=== PATIENT | male | born 2005 | race Caucasian/White ===

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

== ENCOUNTER 2023-08-07 20:24 | Emergency (ER) | payer MEDICAID, SELFPAY ==
[2023-08-07 20:29] VITALS: BP 160/70; PULSE 74; RESP 14; TEMP 36.7; O2SAT 98
--- NOTE | 2023-08-07 20:39 | ED.GENADUL_ITS ---
Discharge Plan Disposition Patient Disposition: Home Condition: Stable Discharge Details Clinical Impression: Cellulitis of both feet Primary Care Provider: Unknown,Unknown ED Provider: Waqas Suggs Home Meds and New Rx's Prescriptions: New sulfamethoxazole-trimethoprim 800-160 mg tablet 1 tab PO BID 10 Days Qty: 20 0RF Continued fluticasone propionate [Flovent HFA] 120 PUFF HFA aerosol inhaler 1 puff Inhalation BID Qty: 1 1RF albuterol sulfate [Ventolin HFA] 60 PUFF HFA aerosol inhaler 2 puff Inhalation Q4H PRN PRNQty: 1 1RF Discharge Instructions Instructions: Sulfamethoxazole/Trimethoprim (By mouth), Mupirocin (On the skin), Cellulitis (ED) Additional Instructions: You were seen in the emergency department for your infected feet. I have sent a prescription for Bactrim to [facility] down the [place]. You need to follow-up with podiatry as your feet likely need specialty care. You need to take better care of your feet including wearing clean socks, you should be bandaging these wounds and using topical antibiotics that we have provided for you today. Pl ease return for any severe increase in redness, red streaking up the leg, fever, nausea, weakness. Referrals: [facility] [Provider Group] Discharge Data Discharge Date/Time-TO BE ENTERED AT DEPARTURE: 08/07/23 21:22 HPI General Date/Time Provider Initiated Documentation: 08/07/23 20:35 . HPI Narrative: 17 year-old male presents to ED today by POV/ambulating with a chief complaint of toe infections per Mom, patient denies acute problem with onset noted chronically after dropping something on his toes 3 years ago. Quality described as redness, mild lesions to toes, no radiation to fever, red streaking, purulent drainage, calf pain, leg swelling. Severity is described as mild. Palliating factors include nothing specific. Provoking factors include nothing specific. Patient not anticoagulated. Related Data Home Medications Medication Instructions Recorded Confirmed albuterol sulfate 90 mcg/actuation 2 puff inhalation Q4H PRN PRN ##1 01/04/16 08/07/23 aerosol inhaler (Ventolin HFA) fluticasone propionate 110 1 puff inhalation BID ##1 01/04/16 08/07/23 mcg/actuation HFA aerosol inhaler (Flovent HFA) sulfamethoxazole 800 1 tab PO BID cellulitis 10 days 08/07/23 mg-trimethoprim 160 mg tablet #20 tabs Previous Rx's Medication Instructions Recorded albuterol sulfate 90 mcg/actuation 2 puff inhalation Q4H PRN PRN ##1 01/04/16 aerosol inhaler (Ventolin HFA) fluticasone propionate 110 1 puff inhalation BID ##1 01/04/16 mcg/actuation HFA aerosol inhaler (Flovent HFA) sulfamethoxazole 800 1 tab PO BID cellulitis 10 days 08/07/23 mg-trimethoprim 160 mg tablet #20 tabs Allergies Allergy/AdvReac Type Severity Reaction Status Date / Time No Known Allergies Allergy Unverified 06/13/21 14:55 General Stated Complaint: Cellulitis LUIS: 3 Review of Systems All systems reviewed & are unremarkable except as noted in HPI and below Exam Narrative Exam Narrative: GENERAL APPEARANCE: Well-nourished, non-toxic, awake and alert, atraumatic, no acute distress. SKIN: Warm, pink, dry, diffuse erythema and paronychia without purulent drainage lucio-nailbeds to any toes bilaterally. Minor ulcerations/wounds, no lymphadenitis, no leg swelling. HEAD: Normocephalic, atraumatic, normal hair distribution for gender/age. EYES: Pupils PERRLA, EOMs intact without nystagmus, normal conjunctiva, no exudates on lids/lashes. ENT: Nares patent, no circumoral cyanosis, no facial swelling NECK: Supple, trachea midline, painless cervical ROM. LUNGS/CHEST: Non-labored respirations, normal A/P diameter, symmetrical expansion, no chest wall deformity HEART (CV/PV): No peripheral edema, no JVD. ABDOMEN: Soft, non-distended, no guarding. MSK: Normal ROM, no swelling/deformity to bilateral UEs or LEs, moving all extremities without weakness, no cyanosis, spine midline without tenderness, normal curvature. NEURO: Mental Status AAOx4 - alert to person, place, time, events No facial droop, no forehead involvement. Motor: No focal weakness - strength 5/5 in bilateral UEs and LEs, proximal and distal, symmetric. Sensory: sensation intact to light touch globally. Gait normal: patient ambulated without ataxia into ED room. PSYCH: euthymic, cooperative, pleasant, appropriate speech Course Vital Signs Vital signs: Vital Signs Temperature 36.7 C 08/07/23 20:29 Pulse 74 08/07/23 20:29 Respiratory Rate 14 08/07/23 20:29 Blood Pressure 160/70 H 08/07/23 20:29 Pulse Oximetry 98 08/07/23 20:29 Temperature 36.7 C 08/07/23 20:29 Temperature Source Oral 08/07/23 20:29 Pulse 74 08/07/23 20:29 Respiratory Rate 14 08/07/23 20:29 Respiratory Effort Normal, Non-Labored 08/07/23 20:34 Blood Pressure 160/70 H 08/07/23 20:29 Blood Pressure Position Sitting 08/07/23 20:29 Pulse Oximetry 98 08/07/23 20:29 Oxygen Delivery Method Room Air 08/07/23 20:29 Oxygen Flow Rate 0 08/07/23 20:29 Pain Level 0 08/07/23 20:29 Medical Decision Making This dictation utilizes [id number] dictation software and may contain une dited grammatical errors. 17 y/o M presents to ED today with a chief complaint of bilateral diffuse erythema/infection to toes, no purulent drainage, no fever, no lymphadenitis. Patient states his toes are always like this for years. Patients' medical history: negative. Family and social history: noncontributory. Pertinent exam findings / vital signs include SKIN: Warm, pink, dry, diffuse erythema and paronychia without purulent drainage lucio-nailbeds to any toes bilaterally. Minor ulcerations/wounds, no lymphadenitis, no leg swelling.. Differential / pathologies of concern include cellulitis/parnoychia, not sepsis, not vascular pathology. Diagnostic studies of: -none. Interventions of: -Outpatient Rx for Bactrim for paronychia, refer podiatry. ED Course/Assessment/Plan: 17-year-old male presents with bilateral erythematous toes, has minor ulcerations and redness without purulent drainage, likely significant cellulitis/paronychia ongoing for some time now. Patient takes poor care of his feet, I counseled him on better footcare as well as topical antibiotics with mupirocin provided an outpatient prescription for Bactrim, refer to podiatry. Counseled strict return criteria for fever, red streaking up the legs, unilateral leg swelling or focal nodular swelling to the calves. Findings not consistent with neurovascular compromise, sepsis. Disposition of cellulitis of both feet. Patient verbalized understanding of the plan and return to ED criteria and engaged in shared decision making. Medical Records Medical records reviewed: Yes I reviewed the patient's medical records. Quality:SDOH Health Related Social Needs: No Data to Display PFSH All Active Problems (Updated 08/07/23 @ 21:06 by CARLY Moore) Cellulitis of both feet (Acute) Social History Smoking/Tobacco Use Status: Never Smoking risk assessment performed?: Yes Alcohol Intake: never Drug use: Never Substance use type: does not use Do you feel safe at home: Yes Do you feel safe in your relationship?: Yes
[2023-08-07] MEDS: Mupirocin 2% Oint. 22 GM TUBE TP (21:16)
[2023-08-07] MEDS: Sulfameth/Trimeth DS, 2 TABS/BTL 1 TAB PO (21:16)
--- NOTE | 2023-08-08 17:01 | NUR.NOTE ---
Referral faxed to Podiatry for follow up to Cellulitis of both feet, to be seen as soon as possible.
== END 2023-08-07 21:22 | disposition home or self-care (01) ==
LOC: ER 21:19
PROVIDERS: Emergency Provider Physician Assistant
DX: L03.115 Cellulitis of right lower limb (principal); L03.116 Cellulitis of left lower limb
CPT/HCPCS: 99283

== ENCOUNTER → 2023-08-25 10:45 | Outpatient (CLI) | payer MEDICAID, SELFPAY ==
--- NOTE | 2023-08-25 09:41 | DI.RAD_ITS ---
Exam(s) XR FOOT LT COMPLETE XR FOOT RT COMPLETE EXAM: XR FOOT RT COMPLETE CLINICAL HISTORY: L03.031 Cellulitis of Rt toe, Paroncychia great toe ,OM? hallux?. TECHNIQUE: 2D digital imaging was performed. Three views. COMPARISON: CR XR FOOT LT COMPLETE from 08/25/2023 FINDINGS: BONES: No acute fracture is present. No bony destructive lesion is seen. JOINTS: No dislocation present. SOFT TISSUE: Soft tissue swelling at great toe bilaterally. No foreign body or gas collection. IMPRESSION: Soft tissue swelling at the great toe bilaterally. No evidence of osteomyelitis. DATA REPOSITORY: RADIATION DOSE DELIVERED:
== END ==
PROVIDERS: PCP Physician Assistant; Visit Provider Podiatrist
DX: L03.031 Cellulitis of right toe (principal); L03.032 Cellulitis of left toe
CPT/HCPCS: 73630